=== PATIENT | female | born 1990 | race Caucasian/White ===

== ENCOUNTER 2024-07-26 18:19 | Emergency (ER) | payer OTHER, SELFPAY ==
[2024-07-26 18:19] VITALS: BMI 27.6
[2024-07-26 18:28] VITALS: BP 150/90
[2024-07-26 19:01] LABS: % Basophils 0.4 % (0-2); % Eosinophils 4.9 % (0-6); % Immature Granulocytes 0.3 % (0-0.5); % Lymphocytes 17.2 % (20.5-51.1); % Neutrophils 69.2 % (42.2-75.2); Absolute Eosinophils 0.5 10^3/uL (0-0.7); Absolute Lymphocytes 1.8 10^3/uL (1.2-3.4); Absolute Monocytes 0.8 10^3/uL (0.1-0.6); Absolute Neutrophils 7.3 10^3/uL (1.4-6.5); Hematocrit 39.6 % (37.0-47.0); Hemoglobin 13.4 g/dL (12.0-16.0); Mean Corp Hgb Conc. 33.8 g/dL (33.0-37.0); Mean Corpuscular Volume 88.6 fL (81.0-99.0); Mean Platelet Volume 10.7 fL (7.4-10.4); Nucleated Red Blood Cells % 0 %; Platelet Count 369 10^3/uL (130-400); Red Blood Cell Count 4.47 10^6/uL (4.20-5.40); Red Cell Dist. Width 13.4 % (11.5-14.5); White Blood Cell Count 10.5 10^3/uL (4.8-10.8)
[2024-07-26 19:18] LABS: HCG, Serum Qualitative Screen Negative
[2024-07-26 19:19] LABS: C-Reactive Protein < 5.00 mg/L (0.0-10.00)
[2024-07-26 19:20] LABS: Erythrocyte Sed Rate 2 mm/hour (0-20)
[2024-07-26 19:27] LABS: ALT (SGPT) 16 U/L (0-35); AST (SGOT) 20 U/L (14-36); Albumin 4.6 g/dl (3.5-5.0); Alkaline Phosphatase 65 U/L (38-126); Blood Urea Nitrogen 14 mg/dl (7-17); Calcium 9.8 mg/dl (8.4-10.2); Carbon Dioxide 27 mmol/L (22-30); Chloride 107 mmol/L (98-107); Glucose 103 mg/dl (70-99); Sodium 142 mmol/L (135-145); Total Bilirubin 0.7 mg/dl (0.2-1.3); eGFR > 60.00
[2024-07-26 21:19] VITALS: BP 142/66
[2024-07-27 00:08] VITALS: BP 158/78
--- NOTE | 2024-07-27 00:37 | ED.CVA ---
History of Present Illness
General
Chief Complaint: CVA/TIA Symptoms
Source: patient and significant other
Time Seen by Provider: 07/27/24 00:17
Onset of Stroke Symptoms
Onset of symptoms known: No
Time pt last seen normal is known: No
History of Present Illness
History of Present Illness:
34-year-old female presents to the emergency room for evaluation of abnormal speech. Patient states that she has been having intermittent episodes of abnormal speech beginning in April. She has been evaluated in the emergency room at another
facility as well as having seen a neurologist. She has a an MRI and a EEG scheduled. Patient felt her speech abnormality was at its worst today prompting her to come for evaluation. Patient also feels like she has some right-sided paresthesias.
She is able to swallow normally. The episodes have been occurring quite frequently on most and every other day basis.
Phy Exam
Physical Exam
Physical Exam:
General: Awake, Alert, Oriented X3. No acute distress. Speech pattern is reminiscent of an individual with impaired hearing rather than slurred speech or aphasia. (? apraxia)
Vitals: unremarkable
Head: Atraumatic
Eyes: Pupils equal, EOMI
Throat: Airway intact, no exudates
Neck: Trachea midline
Lungs: Clear and equal b/l
Heart: Regular rate, no murmurs
Abd: Soft, Nontender, No pulsatile mass
Neuro: Cranial nerves intact, muscle strength equal bilaterally, cerebellar exam normal, sensation intact, no visual field deficit
Skin: Warm, dry, no rash
Extremities: pulses equal b/l, no edema
Course
Orders/Labs/Results
Orders:
Orders
07/26/24 18:41
Test Result ONCE
07/26/24 18:47
CT Head W/o Iv Contrast Urgent
Comment: started in april, symptoms progressively worsening
Reason For Exam: slurred speech and right arm/leg weakness
07/26/24 18:51
C-Reactive Protein Urgent
Complete Blood Count/With Diff Urgent
Comprehensive Metabolic Panel Urgent
ESR [Erythrocyte Sed Rate] Urgent
HCG, Serum Qualitative Screen Urgent
Abnormal Lab Results
07/26/24
18:51
MPV 10.7 H fL
(7.4-10.4)
Absolute Neuts (auto) 7.3 H 10^3/uL
(1.4-6.5)
Absolute Monos (auto) 0.8 H 10^3/uL
(0.1-0.6)
Lymphocytes % 17.2 L %
(20.5-51.1)
Glucose 103 H mg/dl
(70-99)
07/26/24 18:51
07/26/24 18:51
Vital Signs
Initial and Last Documented VS:
Initial Vital Signs
Temp Pulse Resp BP Pulse Ox
98.2 F 69 18 150/90 100
07/26/24 18:28 07/26/24 18:28 07/26/24 18:28 07/26/24 18:28 07/26/24 18:28
Last Documented Vital Signs
Temp Pulse Resp BP Pulse Ox
98.2 F 52 17 132/59 98
07/26/24 18:28 07/27/24 01:18 07/27/24 01:18 07/27/24 01:18 07/27/24 01:18
MDM/Problems Addressed
Differential Diagnosis Includes:
Seizure disorder, neuromuscular process, MS, conversion disorder
MDM/Problems Addressed:
Patient presents with episodic speech abnormality. The presentation does not appear to be consistent with an ischemic type event. She has no focal neurologic deficits. Her palate and tongue appear to move normally. She is able to ambulate
without difficulty. She is under the care of a neurologist and has advanced imaging and an EEG scheduled in the coming days. Labs and a CT here are unremarkable. While I am sure the patient's symptoms must be frustrating this appears to be a more
chronic process which will not be diagnosed here in the emergency room. From our emergency room standpoint I feel we have excluded life threats and processes which would require immediate intervention. I feel the patient is appropriate for
discharge and further outpatient workup by her neurologist.
Patient's blood pressure is slightly high at 150/90 on arrival with a repeat of 142/66. This can be followed up as an outpatient.
*Radiology
Radiology exam reviewed: radiology read reviewed
*Pulse Oximetry
Patient hypoxic: no
*Critical Care Note
Total Time (30-74mins, 75-104mins- exclusive of procedures): Not Applicable
ED Attending Note
-
Portions of this chart may have been created with voice recognition software.� Occasional wrong word or��sound alike� substitutions may have occurred due to the inherent limitations of voice recognition software.
Discharge Plan
Departure
Patient Disposition: Home (Routine Discharge)
Date of Disposition: 07/27/24
Time of Disposition: 01:03
Patient with high blood pressure during this ER visit?: Yes
Condition: Good
Discharge Problem:
Speech abnormality
Instructions: Apraxia (DC), BLOOD PRESSURE
Referrals:
Thu Floyd DO [Family Provider, Internal Medicine]
Activity Restrictions/Additional Instructions:
Please follow up with your neurolgist and have the studies they ordered.
Interventions
Interventions:
*Risk Screen - Suicide Last Done: 07/27/24 00:00
*General Assessment Last Done: 07/27/24 01:16
*Neglect/Abuse Screening Last Done: 07/27/24 00:00
*ED- Fall Risk Assessment Last Done: 07/27/24 00:00
*ED COVID-19 Vaccine History Last Done: 07/27/24 00:00
*Nursing Disposition Last Done: 07/27/24 01:18
ED- Pulmonary Assessment Last Done: 07/27/24 00:24
ED- Neurological Assessment Last Done: 07/27/24 00:21
ED- Cardiac Assessment Last Done: 07/27/24 00:21
ED Swallowing Screen Last Done: 07/27/24 00:21
Discharge Date and Time
Discharge Date/Time: 07/27/24 01:19
Print Language: FIJIAN
[2024-07-27 01:00] VITALS: BP 132/59
[2024-07-27 01:18] VITALS: BP 132/59
== END 2024-07-27 01:19 | disposition home or self-care (01) ==
LOC: EMR 18:19
PROVIDERS: Emergency Medicine; EMERGENCY PHYSICIAN Emergency Medicine; FAMILY PHYSICIAN Internal Medicine
DX: R47.9 Unspecified speech disturbances (principal); R03.0 Elevated blood-pressure reading, without diagnosis of hypertension
CPT/HCPCS: 99285; 70450; 80053; 84703; 85025; 85652; 86140